=== PATIENT | male | born 1985 | race African-American/Black ===

== ENCOUNTER 2019-03-05 01:17 | Emergency (ER) | payer OTHER ==
[~2019-03-05] VITALS: Ht 167.6 cm; Wt 100.0 kg
[~2019-03-05 01:17] MED LIST: IBUP-1542 PO
--- NOTE | 2019-03-05 01:25 | ERD ---
ER Documentation Chief Complaint Chief Complaint Medical clearance for booking HPI The patient is a 33-year-old male, presenting to the ER for medical clearance for booking. He went to [facility] 2 weeks ago and diagnosed with left elbow and left wrist fracture. He is under the [employer] custody, complain ing of worsening left wrist pain because he is being handcuffed. He denies headache, neck pain, chest pain, dyspnea, abdominal pain, vomiting, dizzy, diarrhea. He smokes and drinks Past medical history: Schizophrenia, bipolar Surgical history: None recently ROS All systems reviewed and are negative except as per history of present illness. Medications Home Meds Active Scripts Ibuprofen* (Motrin*) 600 Mg Tab, 600 MG PO Q6H PRN for PAIN, #20 TAB Prov:KADEEM LANGE MD 03/05/19 Allergies Allergies: Coded Allergies: No Known Allergy (Unverified , 03/05/19) Physical Exam Vitals Vital Signs Date Temp Pulse Resp B/P (MAP) Pulse Ox O2 O2 Flow FiO2 Time Delivery Rate 03/05/19 98.0 85 18 141/74 100 Room Air 03:21 (96) 03/05/19 98.0 90 18 160/80 100 01:26 (106) Physical Exam Const: No acute distress. Head: Atraumatic. Eyes: Normal Conjunctiva. ENT: Normal External Ears, Nose and Mouth. Neck: Full range of motion. No meningismus. Resp: Clear to auscultation bilaterally. Cardio: Regular rate and rhythm. Abd: Soft, non distended, normal bowel sounds, non tender. Skin: No petechiae or rashes. Back: No midline or flank tenderness. Ext: left shoulder is without any tenderness, left elbow and left wrist with vague tenderness, no erythema/ecchymosis, palpable distal pulses, normal capillary refill Neur: Awake and alert. No focal deficit Psych: Normal Mood and Affect. Procedures/[place] [id number] Radiology Main Line: [phone] DIAGNOSTIC IMAGING REPORT Patient: ANDREW HAWTHORNE : 1985 Age: 33 Sex: M MR #: [id number] DOS: 03/05/19 0154 Ordering MD: KADEEM LANGE MD Location: E/R Room/Bed: PROCEDURE: Left elbow. CLINICAL INDICATION: Pain. TECHNIQUE: Three views including AP, lateral and oblique views of the left elbow were obtained. COMPARISON: None. FINDINGS: There is a fracture of the radial and. There is no dislocation. The joint spaces are within normal limits. Bone mineralization is within normal limits. There is no radiopaque foreign body or abnormal calcification. IMPRESSION: Radial neck fracture. .Navin Martinez MD, MD Date Time Electronically viewed and signed by .Navin Martinez MD, MD on 03/05/2019 02:56 .T/ CC: KADEEM LANGE MD [id number] [place] [id number] Radiology Main Line: [phone] DIAGNOSTIC IMAGING REPORT Patient: ANDREW HAWTHORNE : 1985 Age: 33 Sex: M MR #: [id number] DOS: 03/05/19 0154 Ordering MD: KADEEM LANGE MD Location: E/R Room/Bed: PROCEDURE: Left shoulder. CLINICAL INDICATION: Pain. TECHNIQUE: Three views of the left shoulder. COMPARISON: None. FINDINGS: There is no fracture, dislocation or bone destruction. The joint spaces are within normal limits. Bone mineralization is within normal limits. There is no radiopaque foreign body or abnormal calcification. IMPRESSION: Unremarkable left shoulder. .Navin Martinez MD, MD Date Time Electronically viewed and signed by .Navin Martinez MD, MD on 03/05/2019 02:56 .T/ CC: KADEEM LANGE MD [id number] [address] [place] [address] Radiology Main Line: [phone] DIAGNOSTIC IMAGING REPORT Patient: ANDREW HAWTHORNE : 1985 Age: 33 Sex: M MR #: [id number] DOS: 03/05/19 0154 Ordering MD: KADEEM LANGE MD Location: E/R Room/Bed: PROCEDURE: Left wrist. CLINICAL INDICATION: Pain. TECHNIQUE: 4 views including PA, lateral and oblique views were performed. COMPARISON: None. FINDINGS: There is a fracture of the proximal to mid scaphoid. There is no dislocation. The joint spaces are within normal limits. Bone mineralization is within normal limits. There is no radiopaque foreign body or abnormal calcification. IMPRESSION: Scaphoid fracture. .Navin Martinez MD, MD Date Time Electronically viewed and signed by .Navin Martinez MD, MD on 03/05/2019 02:55 .T/ CC: KADEEM LANGE MD [id number] MEDICAL MAKING DECISION: The patient is a 33-year-old male, presenting with recent fracture of the left radial neck and left scaphoid He was treated with a thumb spica and posterior elbow splint. Post splint neurovascular is intact The differential diagnoses considered include but are not limited to fracture, internal derangement Departure Diagnosis: Primary Impression: Left radial head fracture Additional Impressions: Fracture of scaphoid of left wrist Medical clearance for incarceration Condition: Good Comments The patient's blood pressure was elevated (>120/80) but appears stable without evidence of hypertension emergency or urgency. The patient was counseled about the risks of hypertension and urged to pursue outpatient monitoring and therapy within a week with their primary care physician. I discussed the findings with the patient. I advised the patient to follow-up with the nursing home doctor for immediate referral to orthopedist Disclaimer: Inadvertent spelling and grammatical errors are likely due to EHR/dictation software use and do not reflect on the overall quality of patient care. Also, please note that the electronic time recorded on this note does not necessarily reflect the actual time of the patient encounter. KADEEM LANGE MD Mar 05, 2019 01:25
[2019-03-05 01:26] VITALS: Ht 167.6 cm; Wt 100.0 kg
[2019-03-05 03:21] VITALS: BP 141/74; PULSE 85; RESP 18
== END 2019-03-05 03:25 ==
LOC: E/R 01:17
DX: S52.122A Displaced fracture of head of left radius, initial encounter for closed fracture (principal); S62.002A Unspecified fracture of navicular [scaphoid] bone of left wrist, initial encounter for closed fracture; R40.2142 Coma scale, eyes open, spontaneous, at arrival to emergency department; R40.2362 Coma scale, best motor response, obeys commands, at arrival to emergency department; R40.2242 Coma scale, best verbal response, confused conversation, at arrival to emergency department; X58.XXXA Exposure to other specified factors, initial encounter; Y92.9 Unspecified place or not applicable
CPT/HCPCS: 73030